=== PATIENT | female | born 1980 | race Caucasian/White ===

== ENCOUNTER 2017-10-02 09:55 | Inpatient (IN) | payer OTHER ==
[~2017-10-02 09:55] MED LIST: OXYTOCIN 30 UNITS/LR 500 ML BAG IV
[2017-10-02] MEDS ORDERED: CEFAZOLIN 2 GM/50 ML (PMX) 50 ML IVPB (10:52)
[2017-10-02 11:00] LABS: ADD MAN DIFF? NO
[2017-10-02] MEDS ORDERED: METHYLERGONOVINE 0.2 MG INJ IM (11:00)
[2017-10-02] MEDS ORDERED: OXYTOCIN 30 UNITS/LR 500 ML IV (11:00)
[2017-10-02] MEDS ORDERED: CEFAZOLIN 2 GM/50 ML (PMX) 50 ML IV (11:00)
[2017-10-02] MEDS ORDERED: MISOPROSTOL 200 MCG TAB PR (11:00)
[2017-10-02] MEDS ORDERED: CARBOPROST 250 MCG INJ IM (11:00)
[2017-10-02 11:04] LABS: WHITE BLOOD COUNT 6.9 10^3/ul (4.8-10.8)
[2017-10-02 11:04] LABS: ABNORMAL IP MESSAGE 1; BASOPHIL # 0.1 10^3/ul (0.0-0.1); BASOPHILS % 0.7 % (0.0-2.0); EOSINOPHILS # 0.1 10^3/ul (0.0-0.5); EOSINOPHILS % 1.2 % (0.0-7.0); HEMATOCRIT 38.1 % (37.0-47.0); HEMOGLOBIN 12.2 g/dl (12.0-16.0); LYMPHOCYTES # 1.5 10^3/ul (0.8-2.9); LYMPHOCYTES % 22.3 % (15.0-51.0); MEAN CORPUSCULAR HEMOGLOBIN 26.4 pg (29.0-33.0); MEAN CORPUSCULAR VOLUME 82.5 fl (82.0-101.0); MEAN PLATELET VOLUME 11.3 fl (7.4-10.4); MONOCYTE # 0.3 10^3/ul (0.3-0.9); NEUTROPHIL # 4.8 10^3/ul (1.6-7.5); NEUTROPHILS % 70.5 % (39.0-77.0); PLATELET COUNT 195 10^3/UL (140-415); RED BLOOD COUNT 4.62 10^6/ul (4.20-5.40); RED CELL DISTRIBUTION WIDTH 23.5 % (11.5-14.5)
[2017-10-02 11:06] LABS: POSITIVE DIFF @See below
[2017-10-02 11:23] LABS: CANNABINOIDS Negative (NEGATIVE)
[2017-10-02 11:27] LABS: INR 0.86; PROTIME 11.8 Sec (11.9-14.9); PT RATIO 0.9
[2017-10-02 11:30] LABS: AMPHETAMINE/METHAMPHETAMINE Negative (NEGATIVE); BARBITURATES Negative (NEGATIVE); BENZODIAZEPINES Negative (NEGATIVE); COCAINE Negative (NEGATIVE); OPIATES Negative (NEGATIVE); PARTIAL THROMBOPLASTIN TIME 26.6 Sec (25.0-35.0)
[2017-10-02] MEDS: LACTATED RINGER'S 1,000 ML IV ×4 (12:21→23:49)
[2017-10-02 12:23] LABS: HEPATITIS B SURFACE ANTIGEN NEGATIVE (NEGATIVE)
[2017-10-02 12:50] LABS: ALANINE AMINOTRANSFERASE 17 IU/L (13-69); ALBUMIN 3.5 g/dl (3.3-4.9); ALBUMIN/GLOBULIN RATIO 0.97; ALKALINE PHOSPHATASE 251 IU/L (42-121); ANION GAP 17 (8-16); ASPARTATE AMINO TRANSFERASE 29 IU/L (15-46); BILIRUBIN,INDIRECT 0.5 mg/dl (0-1.1); BILIRUBIN,TOTAL 0.5 mg/dl (0.2-1.3); BLOOD UREA NITROGEN 7 mg/dl (7-20); CALCIUM 9.1 mg/dl (8.4-10.2); CARBON DIOXIDE 22 mmol/L (21-31); CHLORIDE 108 mmol/L (97-110); CREATININE 0.69 mg/dl (0.44-1.00); GLUCOSE 86 mg/dl (70-220); POTASSIUM 4.3 mmol/L (3.5-5.1); SODIUM 143 mmol/L (135-144); TOTAL PROTEIN 7.1 g/dl (6.1-8.1); URIC ACID 5.6 mg/dl (3.1-7.9)
[2017-10-02 12:59] LABS: ADD UMIC YES; UR ASCORBIC ACID NEGATIVE (NEGATIVE); UR BILIRUBIN (Dip) NEGATIVE (NEGATIVE); UR BLOOD (Dip) NEGATIVE (NEGATIVE); UR CLARITY SLIGHTLY CLOUDY (CLEAR); UR COLOR YELLOW (YELLOW); UR GLUCOSE (Dip) NEGATIVE (NEGATIVE); UR KETONES (Dip) NEGATIVE (NEGATIVE); UR LEUKOCYTE ESTERASE (Dip) 1+ Leu/ul (NEGATIVE); UR MUCUS MODERATE /HPF (NONE SEEN); UR NITRITE (Dip) NEGATIVE (NEGATIVE); UR RBC 1 /HPF (0-5); UR SQUAMOUS EPITHELIAL CELL FEW /HPF (FEW); UR TOTAL PROTEIN (Dip) NEGATIVE (NEGATIVE); UR UROBILINOGEN (Dip) NEGATIVE (NEGATIVE); UR WBC 4 /HPF (0-5)
[2017-10-02] MEDS ORDERED: morphine SULFATE/PF (10 MG/10 ML) INJ (13:05)
[2017-10-02] MEDS ORDERED: BUPIVACAINE 0.75%/DEXT (SPINAL) 2 ML INJ (13:12)
[2017-10-02] MEDS ORDERED: PHENYLephrine (100 MCG/ML) 5ML SYG (13:19)
[2017-10-02] MEDS: OXYTOCIN 30 UNITS/LR 500 ML IV ×3 (14:46→23:37)
[2017-10-02 16:51] LABS: RAPID PLASMA REAGIN NONREACTIVE (NR)
[2017-10-02] MEDS ORDERED: ONDANSETRON 4 MG INJ IV ×2 (17:00)
[2017-10-02] MEDS ORDERED: NALOXONE (0.4 MG/ML) INJ IV (17:00)
[2017-10-02] MEDS ORDERED: DIPHENHYDRAMINE 50 MG INJ IV ×2 (17:00)
[2017-10-02] MEDS ORDERED: HYDROmorphONE (0.2 MG/ML) 10ML SYG IV (17:00)
[2017-10-02] MEDS ORDERED: FENTAnyl 50 MCG/ML VIAL IV ×2 (17:00)
[2017-10-02] MEDS ORDERED: METOCLOPRAMIDE 10 MG INJ IV (17:00)
[2017-10-02] MEDS ORDERED: HYDROmorphONE 0.5 MG/0.5 ML SYG IV ×2 (17:00)
[2017-10-02] MEDS: KETOROLAC 30 MG INJ IV (17:01)
[2017-10-02] MEDS: HYDROmorphONE (0.2 MG/ML) 10ML SYG IV (17:41)
[2017-10-02] MEDS ORDERED: MAGNESIUM SULFATE 4 GM/100 ML 100 ML (18:54)
[2017-10-02] MEDS: MAGNESIUM SULFATE 4 GM/100 ML 100 ML IVPB (19:05)
[2017-10-02] MEDS: MAGNESIUM SULFATE 20 GM/500 ML 500 ML IV (19:30)
[2017-10-03] MEDS ORDERED: MISOPROSTOL 200 MCG TAB PR
[2017-10-03] MEDS ORDERED: OXYTOCIN 30 UNITS/LR 500 ML IV
[2017-10-03] MEDS ORDERED: CARBOPROST 250 MCG INJ IM
[2017-10-03] MEDS ORDERED: METHYLERGONOVINE 0.2 MG INJ IM
[2017-10-03] MEDS ORDERED: LANOLIN 7 GM TUBE TOP
[2017-10-03 01:20] LABS: MAGNESIUM 4.8 mg/dl (1.7-2.5)
[2017-10-03] MEDS: MAGNESIUM SULFATE 20 GM/500 ML 500 ML IV (05:51)
[2017-10-03] MEDS: LACTATED RINGER'S 1,000 ML IV ×2 (07:37→12:44)
[2017-10-03] MEDS: KETOROLAC 30 MG INJ IV (07:45)
[2017-10-03 07:46] LABS: ADD MAN DIFF? NO
[2017-10-03 07:55] LABS: ABNORMAL IP MESSAGE 1; BASOPHIL # 0.1 10^3/ul (0.0-0.1); BASOPHILS % 0.6 % (0.0-2.0); EOSINOPHILS # 0.1 10^3/ul (0.0-0.5); EOSINOPHILS % 0.8 % (0.0-7.0); HEMATOCRIT 30.8 % (37.0-47.0); LYMPHOCYTES # 1.2 10^3/ul (0.8-2.9); LYMPHOCYTES % 13.8 % (15.0-51.0); MEAN CORPUSCULAR HEMOGLOBIN 26.5 pg (29.0-33.0); MEAN CORPUSCULAR HGB CONC 32.5 g/dl (32.0-37.0); MEAN CORPUSCULAR VOLUME 81.5 fl (82.0-101.0); MEAN PLATELET VOLUME 11.6 fl (7.4-10.4); MONOCYTE # 0.4 10^3/ul (0.3-0.9); MONOCYTES % 4.1 % (0.0-11.0); NEUTROPHIL # 7.1 10^3/ul (1.6-7.5); NEUTROPHILS % 80.2 % (39.0-77.0); PLATELET COUNT 175 10^3/UL (140-415); RED BLOOD COUNT 3.78 10^6/ul (4.20-5.40); RED CELL DISTRIBUTION WIDTH 23.5 % (11.5-14.5)
[2017-10-03 07:55] LABS: WHITE BLOOD COUNT 8.8 10^3/ul (4.8-10.8)
[2017-10-03 08:02] LABS: POSITIVE DIFF @See below
[2017-10-03 12:34] LABS: MAGNESIUM 5.5 mg/dl (1.7-2.5)
[2017-10-03] MEDS ORDERED: OXYCODONE/ACETAMINOPHEN (5/325) TAB PO (17:00)
[2017-10-03] MEDS: SENNA/DOCUSATE NA (8.6MG/50MG) TAB PO (21:00)
[2017-10-03] MEDS: IBUPROFEN 800 MG TAB PO (21:46)
[2017-10-04] MEDS: OXYCODONE/ACETAMINOPHEN (5/325) TAB PO (04:12)
[2017-10-04] MEDS: IBUPROFEN 800 MG TAB PO ×3 (06:00→21:31)
[2017-10-04] MEDS: SENNA/DOCUSATE NA (8.6MG/50MG) TAB PO ×2 (09:14→21:28)
[2017-10-04] MEDS: INFLUENZA VIRUS VACCINE 0.5 ML (DISPENSING) IM* (10:06)
[2017-10-05] MEDS: IBUPROFEN 800 MG TAB PO ×2 (05:37→13:30)
[2017-10-05] MEDS: DIPHTH/TET/ACEL PERTUSS (ADULT) 0.5 ML VIAL IM* (09:00)
[2017-10-05] MEDS: SENNA/DOCUSATE NA (8.6MG/50MG) TAB PO (10:02)
== END 2017-10-05 19:11 | disposition home or self-care (01) | DRG 766 ==
LOC: L-D 09:55 → PP1 22:30
PROC: 0UL70ZZ Occlusion of Bilateral Fallopian Tubes, Open Approach (ICD-10-PCS; 2017-10-02 12:30)
PROC: 3E033VJ Introduction of Other Hormone into Peripheral Vein, Percutaneous Approach (ICD-10-PCS; 2017-10-02 12:30)
DX: O34.211 Maternal care for low transverse scar from previous cesarean delivery (principal); E66.01 Morbid (severe) obesity due to excess calories; Z30.2 Encounter for sterilization; O99.214 Obesity complicating childbirth; Z68.31 Body mass index [BMI] 31.0-31.9, adult; O14.94 Unspecified pre-eclampsia, complicating childbirth; Z3A.39 39 weeks gestation of pregnancy; Z37.0 Single live birth
CPT/HCPCS: 80053; 80307; 81001; 83735; 84560; 85025; 85610; 85730; 86592; 86850; 86900; 86901; 86920; 87340; 88302; 90686; 94760; 99464